=== PATIENT | male | born 1945 | race Caucasian/White ===

== ENCOUNTER → 2016-10-12 | Outpatient (CLI) | payer MEDICARE, OTHER | LOC: GMAL 10:12 | PROVIDERS: ATTEND Family Medicine | DX: E55.9 Vitamin D deficiency, unspecified (principal); Z12.5 Encounter for screening for malignant neoplasm of prostate; Z79.899 Other long term (current) drug therapy | CPT/HCPCS: 82306; G0103 ==

== ENCOUNTER → 2018-04-01 | Outpatient (CLI) | payer MEDICARE, OTHER | LOC: GMAL 10:58 | PROVIDERS: ATTEND Family Medicine | DX: D51.3 Other dietary vitamin B12 deficiency anemia (principal); R53.83 Other fatigue; E55.9 Vitamin D deficiency, unspecified; Z12.5 Encounter for screening for malignant neoplasm of prostate | CPT/HCPCS: 82306; 82607; 84443; G0103 ==

== ENCOUNTER → 2019-04-03 | Outpatient (CLI) | payer MEDICARE, OTHER | LOC: GMAL 10:40 | PROVIDERS: ATTEND Family Medicine | DX: Z12.5 Encounter for screening for malignant neoplasm of prostate (principal); D51.3 Other dietary vitamin B12 deficiency anemia; R53.83 Other fatigue; E55.9 Vitamin D deficiency, unspecified; I10 Essential (primary) hypertension; E11.9 Type 2 diabetes mellitus without complications; E78.49 Other hyperlipidemia | CPT/HCPCS: 82306; 82607; 84443; G0103 ==

== ENCOUNTER → 2019-10-08 | Outpatient (CLI) | payer MEDICARE, OTHER | LOC: GMAL 10:38 | PROVIDERS: ATTEND Family Medicine | DX: E53.8 Deficiency of other specified B group vitamins (principal); E11.9 Type 2 diabetes mellitus without complications; Z79.899 Other long term (current) drug therapy; E78.49 Other hyperlipidemia ==

== ENCOUNTER → 2020-05-24 | Outpatient (CLI) | payer MEDICARE, OTHER | LOC: GMAL 11:49 | PROVIDERS: ATTEND Family Medicine | DX: D51.3 Other dietary vitamin B12 deficiency anemia (principal); E55.9 Vitamin D deficiency, unspecified; E78.49 Other hyperlipidemia; N52.9 Male erectile dysfunction, unspecified; Z79.899 Other long term (current) drug therapy; E11.9 Type 2 diabetes mellitus without complications; Z12.5 Encounter for screening for malignant neoplasm of prostate | CPT/HCPCS: 82306; 82607; G0103 ==

== ENCOUNTER → 2020-06-04 | Outpatient (CLI) | payer MEDICARE, OTHER ==
--- NOTE | 2020-06-05 12:23 | US ---
EXAM DESCRIPTION: Abdomen,Complete: Ultrasound. CLINICAL HISTORY: 75 years Male THROMBOCYTOPENIA COMPARISON: None Available. TECHNIQUE: Transabdominal scanning: grayscale and Doppler modes. FINDINGS: Gallbladder: Normal size with sludge. At least 2 small stones which are mobile, less than 4 mm diameter. No fluid around the gallbladder. No wall thickening. 1.7 mm Non-tender with transducer pressure. Common bile duct: caliber 4.4 mm within normal limits. Liver: Heterogeneously increased echogenicity; contour liver capsule smooth where seen. No fluid around the liver. Intrahepatic biliary ducts normal caliber. Doppler hepatopedal flow and normal caliber portal vein 9.3 mm. Long axis right lobe 17.8 cm. Pancreas: normal size and echogenicity. Duct not seen. Complete abdominal aorta: Normal caliber from the proximal segment to the distal bifurcation.. IVC: visualized and normal caliber. Right kidney: long axis measures 10.4 cm; volume 159.6 milliliters. Cortical echogenicity normal.. 13 mm cortical thickness. 1.9 cm simple cyst in the cortex. No echogenic stones; no hydronephrosis. Left kidney: long axis measures 11.5 cm; volume 231.2 mL. Cortical echogenicity heterogeneously increased but less than the liver.. Normal cortical thickness. Lobulated capsule. No echogenic stones; no hydronephrosis. Spleen: Normal. No focal lesions.. 11.2 cm long axis. Other: None. IMPRESSION: 1. Liver is enlarged with steatosis. Physiologic vascularity and ducts. Smooth capsule. No ascites. Pancreas is negative. Spleen is unremarkable. 2. Cholelithiasis of the gallbladder and sludge. No wall thickening or fluid. Nontender abdominal wall. Normal caliber common bile duct. 3. 2 cm cortical cyst in the right kidney otherwise negative. Lobulated capsule on the left kidney with normal cortical thickness heterogeneous echogenicity. Otherwise unremarkable. Normal caliber abdominal aorta and IVC. Electronically signed by: Elias Aden MD 06/05/2020 12:21 PM [facility]
== END ==
LOC: US 07:55
PROVIDERS: ATTEND Family Medicine
DX: D69.6 Thrombocytopenia, unspecified (principal); K76.0 Fatty (change of) liver, not elsewhere classified; K80.20 Calculus of gallbladder without cholecystitis without obstruction; N28.1 Cyst of kidney, acquired; N28.9 Disorder of kidney and ureter, unspecified